=== PATIENT | male | born 1980 | race Two or more races ===

== ENCOUNTER 2018-06-12 08:55 | Emergency (ER) | payer MEDICAID, OTHER ==
[~2018-06-12] VITALS: Ht 182.9 cm; Wt 124.7 kg
[2018-06-12 09:46] LABS: Urine Bacteria NONE SEEN /hpf (None Seen); Urine Blood Negative /uL (Negative); Urine Specific Gravity 1.013 (1.001-1.035); Urine WBC 1 /hpf (0 - 3)
[2018-06-12 10:14] LABS: Basophils # (auto) 0.1 uL; Basophils % (auto) 0.8 % (0.0-2.0); Eosinophils # (auto) 0.2 uL; Eosinophils % (auto) 2.4 % (0.0-7.0); Hematocrit 44.5 % (41.0-53.0); Hemoglobin 14.9 g/dL (13.5-17.5); Lymphocytes # (auto) 2.3 uL; Lymphocytes % (auto) 30.3 % (10.0-50.0); Mean Corpuscular Hemoglobin 30.5 pg (28.0-32.0); Mean Corpuscular Hgb Conc. 33.6 g/dL (32.0-36.0); Mean Corpuscular Volume 90.8 fL (80.0-100.0); Monocytes # (auto) 0.4 uL; Monocytes % (auto) 5.8 % (0.0-12.0); Neutrophils # (auto) 4.5 uL; Neutrophils % (auto) 60.7 % (37.0-80.0); Platelet Count (auto) 244 10^3/uL (140-450); Red Cell Distribution Width 14.1 % (11.8-14.3); White Blood Cell 7.5 10^3/uL (4.4-10.8)
[2018-06-12 10:32] LABS: Albumin 3.7 g/dL (3.4-5.0); Calcium 8.1 mg/dL (8.5-10.1); Potassium 3.8 mmol/L (3.5-5.1)
[2018-06-12 10:34] LABS: BUN/Creatinine Ratio 10.6; Bilirubin, Total 0.3 mg/dL (0.2-1.0); Total Protein 7.6 g/dL (6.4-8.2)
[2018-06-12] MEDS: KETOROLAC TROMETH 60MG/2ML VIAL IM ONE (11:28)
[2018-06-12 11:36] VITALS: BP 111/58
== END 2018-06-12 11:37 | disposition home or self-care (01) ==
LOC: ER 08:55
DX: N20.0 Calculus of kidney (principal)
CPT/HCPCS: 36415; 74176; 80053; 81001; 83690; 85025; 96372; 99284; J1885

== ENCOUNTER 2018-08-30 09:49 | Inpatient (IN) | payer MEDICAID ==
[~2018-08-30] VITALS: Ht 182.9 cm; Wt 112.1 kg
[2018-08-30] MEDS ORDERED: KETOROLAC TROMETH 30 MG/ML 1ML VIAL IV ONE (10:30)
[2018-08-30 10:36] LABS: Basophils # (auto) 0.1 uL; Basophils % (auto) 0.6 % (0.0-2.0); Eosinophils # (auto) 0.2 uL; Eosinophils % (auto) 1.4 % (0.0-7.0); Hematocrit 41.8 % (41.0-53.0); Hemoglobin 14.1 g/dL (13.5-17.5); Lymphocytes # (auto) 2.2 uL; Lymphocytes % (auto) 19.5 % (10.0-50.0); Mean Corpuscular Hemoglobin 30.5 pg (28.0-32.0); Mean Corpuscular Hgb Conc. 33.8 g/dL (32.0-36.0); Mean Corpuscular Volume 90.2 fL (80.0-100.0); Monocytes # (auto) 0.9 uL; Neutrophils # (auto) 7.9 uL; Neutrophils % (auto) 70.5 % (37.0-80.0); Nucleated Red Blood Cells % 0.1 %; Platelet Count (auto) 233 10^3/uL (140-450); Red Blood Cells 4.63 10^6/uL (4.5-5.90); Red Cell Distribution Width 13.7 % (11.8-14.3); White Blood Cell 11.2 10^3/uL (4.4-10.8)
[2018-08-30 10:49] LABS: Albumin 3.5 g/dL (3.4-5.0); Calcium 8.1 mg/dL (8.5-10.1); Potassium 3.9 mmol/L (3.5-5.1)
[2018-08-30 10:58] LABS: BUN/Creatinine Ratio 10.7; Bilirubin, Total 0.2 mg/dL (0.2-1.0); Total Protein 7.5 g/dL (6.4-8.2)
[2018-08-30 11:16] LABS: Urine Bacteria FEW /hpf (None Seen); Urine Blood 2+ /uL (Negative); Urine Mucus FEW (None Seen); Urine Specific Gravity 1.028 (1.001-1.035); Urine WBC 1 /hpf (0 - 3)
[2018-08-30] MEDS ORDERED: MORPHINE SULF INJ 2 MG/ML SYRINGE 1ML IV ONE ×2 (12:00→13:00)
[2018-08-30] MEDS ORDERED: ONDANSETRON HCL 4 MG/2 ML VIAL IV ONE (12:00)
[2018-08-30] MEDS ORDERED: SODIUM CHLORIDE 0.9% 1,000 ML IV ONE (12:00)
[2018-08-30] MEDS ORDERED: SODIUM CHLORIDE 0.9% 1,000 ML IVB ONE (14:22)
[2018-08-30] MEDS ORDERED: TAMSULOSIN HYDROCHLORIDE 0.4 MG CAP PO ONE (14:30)
[2018-08-30] MEDS ORDERED: cefTRIAXone 1GM/50ML D5W 50 ML IV ONE (14:30)
[2018-08-30 15:15] LABS: INR 0.96 (0.9-1.15); Partial Thromboplastin Time 28.1 sec (23.78-33.04); Prothrombin Time 10.3 sec (9.27-12.13)
[2018-08-30] MEDS ORDERED: HYDROmorphone HCL 2 MG/ML VL IV ONE (15:15)
[2018-08-30] MEDS ORDERED: ONDANSETRON HCL 4 MG/2 ML VIAL IV PRN (16:00)
[2018-08-30] MEDS ORDERED: ACETAMINOPHEN 500 MG TAB PO PRN (16:00)
[2018-08-30] MEDS: SODIUM CHLORIDE 0.9% 1,000 ML IV SCH (16:09)
[2018-08-30 17:00] VITALS: BP 132/64
--- NOTE | 2018-08-30 17:30 | NUR ---
RECEIVED PATIENT FROM ED, PATIENT IS A/O X4, POC AND PAIN MANAGEMENT DISCUSSED WITH PATIENT, IV TO RIGHT AC INTACT AND PATENT, BED LOCKED IN LOWEST POSITION, CALL LIGHT WITHIN REACH, WILL CONTINUE TO MONITOR Q1 HR AND PRN
[2018-08-30] MEDS: TAMSULOSIN HYDROCHLORIDE 0.4 MG CAP PO SCH (18:22)
[2018-08-30] MEDS: HYDROmorphone HCL 2 MG/ML VL IV PRN ×2 (18:22→22:36)
--- NOTE | 2018-08-30 19:20 | NUR ---
OPENING NOTE Received report from day shift RN. Patient is A&O X's 4 with no s/s of distress noted. Patient reports mild pain to right plank. Educated patient on POC and on pain management/pain mediations. Patient verbalized understanding. Bed is in lowest/locked position with side rails up X's 2. Call light is within reach of patient. Educated patient to use call light when in need of assistance/ambulating. Will continue to monitor and round hourly/PRN.
[2018-08-30] MEDS: HYDROcodone-ACET 5/325MG TAB PO PRN (20:02)
[2018-08-30 22:00] VITALS: BP 120/71
[2018-08-30] MEDS: DOCUSATE SOD 100 MG CAP PO SCH (22:00)
[2018-08-31] MEDS: SODIUM CHLORIDE 0.9% 1,000 ML IV SCH ×4 (00:08→23:44)
[2018-08-31] MEDS: HYDROmorphone HCL 2 MG/ML VL IV PRN ×6 (02:39→23:44)
[2018-08-31 05:00] VITALS: BP 131/62
[2018-08-31] MEDS: HYDROcodone-ACET 5/325MG TAB PO PRN ×3 (05:03→19:47)
[2018-08-31 06:32] LABS: Basophils # (auto) 0.1 uL; Basophils % (auto) 0.5 % (0.0-2.0); Eosinophils # (auto) 0.3 uL; Eosinophils % (auto) 2.6 % (0.0-7.0); Hemoglobin 13.2 g/dL (13.5-17.5); Lymphocytes # (auto) 2.3 uL; Lymphocytes % (auto) 20.4 % (10.0-50.0); Mean Corpuscular Hemoglobin 31.3 pg (28.0-32.0); Mean Corpuscular Hgb Conc. 34.8 g/dL (32.0-36.0); Mean Corpuscular Volume 90.1 fL (80.0-100.0); Monocytes % (auto) 8.8 % (0.0-12.0); Neutrophils # (auto) 7.5 uL; Neutrophils % (auto) 67.7 % (37.0-80.0); Platelet Count (auto) 219 10^3/uL (140-450); Red Blood Cells 4.21 10^6/uL (4.5-5.90); Red Cell Distribution Width 13.6 % (11.8-14.3); White Blood Cell 11.1 10^3/uL (4.4-10.8)
[2018-08-31 06:51] LABS: BUN/Creatinine Ratio 11.8; Calcium 7.3 mg/dL (8.5-10.1); Potassium 3.7 mmol/L (3.5-5.1)
--- NOTE | 2018-08-31 07:20 | NUR ---
Opening Shift Note Assumed care of patient, awake and alert. No S/S of distress/SOB or pain. Instructed on POC and to call for assist PRN, will continue to monitor for changes Q1hr and PRN.
[2018-08-31 08:00] VITALS: BP 130/69
[2018-08-31 09:00] VITALS: BP 130/69
[2018-08-31] MEDS: cefTRIAXone 1GM/50ML D5W 50 ML IV SCH (09:37)
[2018-08-31] MEDS: DOCUSATE SOD 100 MG CAP PO SCH ×2 (09:37→22:00)
[2018-08-31] MEDS: PANTOPRAZOLE 40 MG/10 ML VIAL IV SCH (09:37)
[2018-08-31 13:00] VITALS: BP 144/74
[2018-08-31 17:00] VITALS: BP 118/68
[2018-08-31] MEDS: TAMSULOSIN HYDROCHLORIDE 0.4 MG CAP PO SCH (18:21)
--- NOTE | 2018-08-31 20:00 | NUR ---
Opening Shift Note Assumed care of patient, awake and alert. No S/S of distress/SOB. Patient c/o right flank pain, given norco PRN with relief, urinating well, yellow, slightly cloudy urine, strained as ordered. Instructed on POC and to call for assist PRN, will continue to monitor for changes Q1hr and PRN.
[2018-08-31 22:00] VITALS: BP 132/71
[2018-09-01] MEDS: HYDROcodone-ACET 5/325MG TAB PO PRN ×3 (03:07→15:33)
[2018-09-01 05:00] VITALS: BP 109/51
[2018-09-01] MEDS: HYDROmorphone HCL 2 MG/ML VL IV PRN ×2 (05:58→13:08)
[2018-09-01 08:00] VITALS: BP 140/74
[2018-09-01] MEDS: PANTOPRAZOLE 40 MG/10 ML VIAL IV SCH (09:18)
[2018-09-01] MEDS: SODIUM CHLORIDE 0.9% 1,000 ML IV SCH ×2 (09:18→15:57)
[2018-09-01] MEDS: cefTRIAXone 1GM/50ML D5W 50 ML IV SCH (09:18)
[2018-09-01] MEDS: DOCUSATE SOD 100 MG CAP PO SCH (09:18)
[2018-09-01 09:48] VITALS: BP 140/74
[2018-09-01] MEDS ORDERED: KETOROLAC TROMETH 30 MG/ML 1ML VIAL IV PRN (11:45)
[2018-09-01] MEDS ORDERED: MANNITOL 20% SOLN 100 gm/500ml 62.5 ML IV ONE (11:45)
[2018-09-01 13:20] VITALS: BP 149/82
[2018-09-01 17:55] VITALS: BP 144/87
--- NOTE | 2018-09-01 18:40 | NUR ---
Discharge from Med Surg Discharge instructions given as ordered. Encourage to follow up with PMD as instructed. All questions and concerns addressed. Patient verbalized understanding. IV removed with catheter intact, pressure dressing applied. Patient taken to vehicle via wheelchair with all personal belongings, accompanied by staff and family member. No distress noted at time of departure.
== END 2018-09-01 18:40 | disposition home or self-care (01) | DRG 465 ==
LOC: ER 09:49 → OVERFLOW 15:56 → CENTRAL 17:30
PROVIDERS: ADMIT Nurse Practitioner Acute Care; ATTEND Internal Medicine
DX: N13.2 Hydronephrosis with renal and ureteral calculous obstruction (principal); N17.0 Acute kidney failure with tubular necrosis; E87.8 Other disorders of electrolyte and fluid balance, not elsewhere classified; E66.01 Morbid (severe) obesity due to excess calories; K57.30 Diverticulosis of large intestine without perforation or abscess without bleeding; Z87.442 Personal history of urinary calculi; Z82.49 Family history of ischemic heart disease and other diseases of the circulatory system; Z71.3 Dietary counseling and surveillance; Z68.33 Body mass index [BMI] 33.0-33.9, adult
CPT/HCPCS: 36415; 71045; 74176; 80048; 80053; 81001; 83735; 85025; 85610; 85730; 87086; 94761; 96361; 96365; 96375; C9113; G0378; J0696; J1885; J2405

== ENCOUNTER 2022-08-12 06:05 | Emergency (ER) | payer BC, MEDICAID ==
[~2022-08-12] VITALS: Ht 182.9 cm; Wt 147.7 kg
[2022-08-12 06:23] VITALS: BP 152/94
[2022-08-12] MEDS ORDERED: cefTRIAXone W LIDOCAINE 1 GM IM IM ONE ×2 (07:30)
[2022-08-12] MEDS ORDERED: LIDOCAINE 1% HCL (LOCAL ANESTH.) INJ 20ML MDV IJ ONE (07:45)
[2022-08-12] MEDS ORDERED: BACDST PO (07:46)
[2022-08-12] MEDS ORDERED: IBUP800T27 PO (07:46)
[2022-08-12] MEDS ORDERED: DOCU-94 PO (07:46)
[2022-08-12] MEDS ORDERED: cefTRIAXone SOD 1,000 MG VL IM ONE (08:00)
== END 2022-08-12 08:20 | disposition home or self-care (01) ==
LOC: ER 06:05
DX: K61.1 Rectal abscess (principal)
CPT/HCPCS: 96372; 99283; J0696; J2001

== ENCOUNTER 2024-11-21 13:14 | Emergency (ER) | payer BC, MEDICAID ==
[~2024-11-21] VITALS: Ht 182.9 cm; Wt 125.0 kg
[~2024-11-21 13:14] MED LIST: BACDST PO; DOCU-94 PO; IBUP-1456 PO
[2024-11-21] MEDS: MORPHINE SULFATE 4 MG/ML SYR/VIAL IV ONE (15:25)
[2024-11-21] MEDS: TETRACAINE HCL 0.5% OPTH(EYE) SOLN 4ML EACHEYE ONE (15:30)
[2024-11-21] MEDS: FLUORESCEIN SOD OPTH TEST STRIP EACHEYE ONE (15:30)
[2024-11-21 16:03] LABS: Basophils # (auto) 0.1 10 ^3/uL (0-0.2); Basophils % (auto) 0.6 % (0.0-2.0); Eosinophils # (auto) 0.1 10 ^3/uL (0-0.8); Eosinophils % (auto) 0.9 % (0.0-7.0); Hematocrit 49.1 % (41.0-53.0); Hemoglobin 16.8 g/dL (13.5-17.5); Lymphocytes # (auto) 1.6 10 ^3/uL (0.4-5.4); Lymphocytes % (auto) 19.2 % (10.0-50.0); Mean Corpuscular Hemoglobin 31.2 pg (28.0-32.0); Mean Corpuscular Hgb Conc. 34.1 g/dL (32.0-36.0); Mean Corpuscular Volume 91.4 fL (80.0-100.0); Monocytes # (auto) 0.7 10 ^3/uL (0-1.3); Neutrophils # (auto) 5.8 10 ^3/uL (1.6-8.6); Neutrophils % (auto) 70.3 % (37.0-80.0); Nucleated Red Blood Cells % 0.1 %; Platelet Count (auto) 246 10^3/uL (140-450); Red Blood Cells 5.38 10^6/uL (4.5-5.90); Red Cell Distribution Width 14.2 % (11.8-14.3); White Blood Cell 8.2 10^3/uL (4.4-10.8)
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
[2024-11-21 16:19] LABS: Alanine Aminotransferase 17 U/L (7-40); Albumin 4.2 g/dL (3.2-4.8); Alkaline Phosphatase 86 U/L (46-116); Anion Gap 7 (5-15); Aspartate Aminotransferase 16 U/L (13-40); BUN/Creatinine Ratio 10.8 (10.0-20.0); Blood Urea Nitrogen 12 mg/dL (9-23); Calcium 9.3 mg/dL (8.7-10.4); Carbon Dioxide 25 mmol/L (20-31); Sodium 141 mmol/L (136-145); Total Protein 7.1 g/dL (5.7-8.2)
[2024-11-21 16:20] LABS: Bilirubin, Total 0.5 mg/dL (0.2-1.0); Chloride 109 mmol/L (98-107); Glucose 72 mg/dL (74-106)
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
[2024-11-21] MEDS ORDERED: NAPR-746 PO (16:55)
[2024-11-21] MEDS ORDERED: METH-1181 PO (16:55)
[2024-11-21 17:05] VITALS: BP 125/67; PULSE 87; RESP 15; TEMP 98.1; O2SAT 100
== END 2024-11-21 17:06 | disposition home or self-care (01) ==
LOC: EDBD 13:14 → ER 13:14
DX: M54.2 Cervicalgia (principal); R07.81 Pleurodynia; M25.552 Pain in left hip; H57.12 Ocular pain, left eye; V89.2XXA Person injured in unspecified motor-vehicle accident, traffic, initial encounter; Y93.89 Activity, other specified; Y92.410 Unspecified street and highway as the place of occurrence of the external cause; Y99.8 Other external cause status
CPT/HCPCS: 36415; 70450; 70486; 71250; 72125; 74176; 80053; 84484; 85025; 96374; 99285; J2270